=== PATIENT | male | born 1930 | race Hispanic/Latino ===

== ENCOUNTER 2017-11-15 08:32 | Day surgery (SDC) | payer MEDICARE ==
[2017-11-03 08:47] VITALS: BMI 28.8
[2017-11-15] MEDS ORDERED: Propofol 10 mg/ml Inj (20 ML) ONE (08:39)
[2017-11-15] MEDS ORDERED: Lactated Ringer's 1,000 ML IV SCH (11:45)
[2017-11-15] MEDS ORDERED: ePHEDrine 50 mg/ml Inj ONE (11:51)
[2017-11-15 12:21] VITALS: RESP 16; TEMP 97.3
[2017-11-15 12:36] VITALS: O2SAT 98
[2017-11-15 12:40] VITALS: BP 119/71; PULSE 87
== END 2017-11-15 14:05 | disposition home or self-care (01) ==
LOC: ENDO 08:32
PROVIDERS: ATTEND Internal Medicine
DX: D12.2 Benign neoplasm of ascending colon (principal); D12.0 Benign neoplasm of cecum; D12.3 Benign neoplasm of transverse colon; D12.8 Benign neoplasm of rectum; K64.8 Other hemorrhoids
CPT/HCPCS: 45380; 45381; 45385; 88305; J2001; J2704; J7040; J7120